=== PATIENT | female | born 1930 | race Caucasian/White ===

== ENCOUNTER 2016-11-15 08:16 | Inpatient (IN) ==
--- NOTE | 2016-11-15 09:01 | PROVIDER DOCUMENTATION ---
HPI-Neurological Disorder - General Chief Complaint: Altered Mental Status Stated Complaint: AMS Time Seen by Provider: 11/15/16 08:45 Source: patient, other (neighbor) Allergies/Adverse Reactions: Patient Allergies Allergy/AdvReac Type Severity Reaction Status Date / Time Sulfa (Sulfonamide Allergy Intermediate RASH AND Verified 04/30/15 13:13 Antibiotics) ITCHING latex Allergy Mild Unknown Verified 04/30/15 13:13 cigarette smoke AdvReac Intermediate NAUSEA, DREW Uncoded 04/30/15 13:13 Home Medications: Home Medication List Medication Instructions Recorded Confirmed Last Taken Type Levothyroxine [Synthroid] 88 microgm PO DAILY 04/22/13 11/15/16 04/30/15 06:00 History 88 MICROGM Pantoprazole [Protonix] 40 mg PO DAILY@0700 04/22/13 11/15/16 04/30/15 06:00 History 40 MG Aspirin 81 mg PO DAILY 02/05/14 11/15/16 04/30/15 06:00 History 81 MG Amlodipine [Norvasc] 10 mg PO QAM 04/04/14 11/15/16 04/30/15 06:00 History 10 MG Clopidogrel [Plavix] 75 mg PO DAILY #0 tablet 04/06/14 11/15/16 04/30/15 06:00 Rx 75 MG Levetiracetam [Keppra] 500 mg PO BID 09/13/14 11/15/16 04/30/15 06:00 History 500 MG Losartan [Cozaar] 50 mg PO DAILY 09/13/14 11/15/16 04/29/15 18:00 History 50 MG Meloxicam [Mobic] 7.5 mg PO DAILY 09/13/14 11/15/16 04/30/15 06:00 History 7.5 MG Acetaminophen 500 mg PO Q4-6H PRN PRN 11/15/16 11/15/16 Unknown History Tamsulosin [Flomax] 0.4 mg PO QHS 11/15/16 11/15/16 Unknown History - History of Present Illness-Neuro Nature of Presenting Problem: delirious Headache Location: reports: global Severity: reports: moderate Onset/Duration: reports: this morning Timing: reports: still present Context: reports: other (delirium) Any recent trauma/injury?: reports: none New weakness or altered sensation location:: reports: none Cognitive Baseline: alert but confused Associated Symptoms: reports: confusion Similar Symptoms Previously?: No Recently seen or treated by another doctor?: No Review of Systems - Adult - REVIEW OF SYSTEMS - ADULT Constitutional: reports: no symptoms reported Eyes: reports: no symptoms reported Ears, Nose, Mouth & Throat: reports: no symptoms reported Cardiovascular: reports: no symptoms reported Respiratory: reports: no symptoms reported Gastrointestinal: reports: no symptoms reported Genitourinary: reports: no symptoms reported Musculoskeletal: reports: no symptoms reported Integumentary: reports: no symptoms reported Neurological: reports: no symptoms reported Endocrine: reports: no symptoms reported Hematologic/Lymphatic: reports: no symptoms reported Allergic/Immunologic: reports: no symptoms reported Past History - Adult - PAST MEDICAL HISTORY-ADULT Review of Records: reports: Nursing Assessment Review, Medications Reviewed, Social history reviewed & non-contributory. Major Childhood Illnesses: reports: denies history Cardiovascular: reports: HTN Respiratory: reports: denies history Gastrointestinal: reports: GERD Obstetrical/Gynecological: reports: denies history Genitourinary: reports: denies history Musculoskeletal: reports: denies history Neurological: reports: CVA, TIA Endocrine/Immune: reports: thyroid disorder (hypothyroidism) Other Conditions: reports: denies history - PRIOR SURGERIES/PROCEDURES Surgical/Procedure History: reports: appendectomy, cholecystectomy, hysterectomy , tonsillectomy, orthopedic (extremity) (right shoulder) - PRIOR HOSPITALIZATIONS Prior Hospitalizations: reports: for similar symptoms - IMMUNIZATION STATUS Childhood Immunizations: See Nurse Assessment Flu Vaccine: See Nurse Assessment - FAMILY HISTORY Family History: reviewed, not pertinent Physical Exam- Neurological - Physical Exam-Neuro Initial Vital Signs Reviewed: Yes General Appearance: other (confused) Eye Exam: bilateral eye: normal inspection, PERRL, EOMI HENMT: normocephalic/atraumatic, moist mucous membranes, normal ENT inspection Head Injury: no evidence of injury Neck: supple Respiratory: lungs clear Cardiovascular: regular rate, rhythm Abdominal Exam: soft Lymphatic: no adenopathy 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 negative: abnormal eye position Motor/Sensory: no motor deficit Neurologic: grossly normal Integumentary: normal color, normal turgor Psych/Mental Status: oriented x 3 Progress - PLAN OF CARE/RESULTS Progress/Plan/Lab Results: Vital Signs - 8 hr 11/15/16 08:20 Temperature 98.4 F Pulse Rate 104 H Respiratory Rate 18 Blood Pressure 165/127 O2 Sat by Pulse Oximetry 94 L Laboratory Results - last 24 hr 11/15/16 11/15/16 11/15/16 08:21 09:06 09:06 WBC RBC Hgb Hct MCV MCH MCHC RDW Std Deviation Plt Count MPV Immature Gran % (Auto) Neut % (Auto) Lymph % (Auto) Dyer % (Auto) Eos % (Auto) Baso % (Auto) Immature Gran # (Auto) Neut # (Auto) Lymph # (Auto) Dyer # (Auto) Eos # (Auto) Baso # (Auto) PT INR APTT (Factor Assay) Sodium 131 L Potassium 4.6 Chloride 94 L Carbon Dioxide 21 L Anion Gap 16 BUN 24 H Creatinine 1.0 H Estimated GFR/1.73 m2 53 BUN/Creatinine Ratio 24 Glucose 117 H POC Glucose 120 H Calculated Osmolality 268 Calcium 9.7 Total Bilirubin 0.30 AST 20 ALT 14 Alkaline Phosphatase 68 Creatine Kinase 41 Troponin T Total Protein 6.7 Albumin 4.6 Globulin 2.0 Albumin/Globulin Ratio 2.0 Plasma Lactate 0.6 Urine Source Urine Color Urine Clarity Urine pH Ur Specific [place] Urine Protein Urine Ketones Urine Blood Urine Nitrite Urine Bilirubin Urine Urobilinogen Urine Microscopic RBC Urine WBC Urine Microscopic WBC Ur Epithelial Cells Urine Glucose Plasma/Serum Ethyl Alc 11/15/16 11/15/16 11/15/16 09:06 09:06 09:06 WBC 9.13 RBC 4.34 Hgb 13.6 Hct 39.9 MCV 91.9 MCH 31.3 H MCHC 34.1 RDW Std Deviation 12.4 Plt Count 222 MPV 10.0 Immature Gran % (Auto) 0.2 Neut % (Auto) 85.2 H Lymph % (Auto) 7.1 L Dyer % (Auto) 6.0 Eos % (Auto) 1.0 Baso % (Auto) 0.5 Immature Gran # (Auto) 0.02 Neut # (Auto) 7.77 H Lymph # (Auto) 0.65 L Dyer # (Auto) 0.55 Eos # (Auto) 0.09 Baso # (Auto) 0.05 PT INR APTT (Factor Assay) Sodium Potassium Chloride Carbon Dioxide Anion Gap BUN Creatinine Estimated GFR/1.73 m2 BUN/Creatinine Ratio Glucose POC Glucose Calculated Osmolality Calcium Total Bilirubin AST ALT Alkaline Phosphatase Creatine Kinase Troponin T < 0.010 Total Protein Albumin Globulin Albumin/Globulin Ratio Plasma Lactate Urine Source Urine Color Urine Clarity Urine pH Ur Specific [place] Urine Protein Urine Ketones Urine Blood Urine Nitrite Urine Bilirubin Urine Urobilinogen Urine Microscopic RBC Urine WBC Urine Microscopic WBC Ur Epithelial Cells Urine Glucose Plasma/Serum Ethyl Alc 11/15/16 11/15/16 09:06 09:45 WBC RBC Hgb Hct MCV MCH MCHC RDW Std Deviation Plt Count MPV Immature Gran % (Auto) Neut % (Auto) Lymph % (Auto) Dyer % (Auto) Eos % (Auto) Baso % (Auto) Immature Gran # (Auto) Neut # (Auto) Lymph # (Auto) Dyer # (Auto) Eos # (Auto) Baso # (Auto) PT 13.0 INR 0.95 APTT (Factor Assay) 27.2 Sodium Potassium Chloride Carbon Dioxide Anion Gap BUN Creatinine Estimated GFR/1.73 m2 BUN/Creatinine Ratio Glucose POC Glucose Calculated Osmolality Calcium Total Bilirubin AST ALT Alkaline Phosphatase Creatine Kinase Troponin T Total Protein Albumin Globulin Albumin/Globulin Ratio Plasma Lactate Urine Source CATH Urine Color YELLOW Urine Clarity CLEAR Urine pH 7.0 Ur Specific [place] 1.000 Urine Protein 1+(30 mg/dL) A Urine Ketones NEGATIVE Urine Blood NEGATIVE Urine Nitrite NEGATIVE Urine Bilirubin NEGATIVE Urine Urobilinogen NORMAL Urine Microscopic RBC Not Reportable Urine WBC 1+ A Urine Microscopic WBC <10 Ur Epithelial Cells <10 Urine Glucose NEGATIVE Plasma/Serum Ethyl Alc Orders Category Date Time Status Cardiac Monitoring DIRECTED Care 11/15/16 08:20 Active Finger Stick Blood Sugar (ED) DIRECTED Care 11/15/16 08:20 Active Oxygen Therapy- ED Nursing DIRECTED Care 11/15/16 08:20 Active Saline Loc NOW Care 11/15/16 08:20 Active CHEST-2 VIEWS [RAD] Stat Exams 11/15/16 08:21 Draft HEAD W/O CONTRAST [CT] Stat Exams 11/15/16 08:21 Draft ALCOHOL BLOOD Stat Lab 11/15/16 09:06 Completed CBC WITH ELECTRONIC DIFF [HEME] Stat Lab 11/15/16 09:06 Completed CK PROFILE [SP CHEM] Stat Lab 11/15/16 09:06 Completed COMPREHENSIVE METABOLIC PANEL [CHEM] Stat Lab 11/15/16 09:06 Completed LACTATE, PLASMA [CHEM] Stat Lab 11/15/16 09:06 Completed PR[address]IME WITH INR PL [COAG] Stat Lab 11/15/16 09:[address] [COAG] Stat Lab 11/15/16 09:06 Completed TROPONIN T Stat Lab 11/15/16 09:[address] W/POSS RFLX CULT [URINALYSIS] Stat Lab 11/15/16 09:45 Completed Lorazepam [Ativan] Med 11/15/16 09:55 Discontinued 1 mg IV NOW ONE Pulse Oximetry Stat Oth 11/15/16 08:20 Active EKG [EKG] Stat Ther 11/15/16 08:20 Draft Result Diagrams: 11/15/16 09:06 11/15/16 09:06 - EKG 1 Time of EKG reading by physician:: 08:27 EKG Read and Signed by:: Rafy Caputo EKG Interpretation (*Must complete 3 of following elements*): Abnormal Rate: 102 Rhythm: SINUS TACHYCARDIA WITH PVCS [place]: normal QRS: PVC's [place] Interval: normal ST Wave: normal - CT/MRI 1 CT Study: Head Impression: Abnormal CT Results: MICRO VZS CHANGES, FRONTAL ETHOMID MAX SINUSITIS Departure - Departure Time of Disposition Decision: 10:52 DIAGNOSIS: Delirium Disposition: ADMITTED INPATIENT 09 Certified Medical Emergency: Emergent Condition: Stable Referrals and Follow-Ups: Wilfred Hernandez [Primary Care Provider] -
[2016-11-15 09:12] LABS: BASO% 0.5 % (0.0-0.8); EOS# 0.09 X1000 (0.0-0.7); HEMATOCRIT 39.9 % (37.0-47.0); HEMOGLOBIN 13.6 g/dL (12.0-16.0); IMM GRAN# 0.02 X1000 (0.0-0.04); IMM GRAN% 0.2 % (0.0-0.5); LYMPH# 0.65 X1000 (1.2-3.4); LYMPH% 7.1 % (20.5-51.1); MANUAL DIFF NEEDED? NO; MCH 31.3 PG (27-31); MCHC 34.1 g/dL (33-37); MCV 91.9 FL (81-99); MONO# 0.55 X1000 (0.11-0.59); NEUT% 85.2 % (42.2-75.2); PLT 222 X1000 (130-400); RBC 4.34 XMIL (4.2-5.4)
[2016-11-15 09:33] LABS: INR 0.95 (0.86-1.15); PTT PL 27.2 Seconds (22.6-43.9)
--- NOTE | 2016-11-15 09:34 | EKG Report ---
Test Performed on : 11/15/2016 08:27:06 AM Test Reason : AMS Blood Pressure : / mmHG Vent. Rate : 102 BPM Atrial Rate : 102 BPM P-R Int : 162 ms QRS Dur : 084 ms QT Int : 368 ms P-R-T Axes : 082 028 037 degrees QTc Int : 479 ms Sinus tachycardia. with frequent premature ventricular complexes. Otherwise normal ECG When compared with ECG of 30-APR-2015 15:33, premature ventricular complexes. are now present Unconfirmed Result
[2016-11-15 09:42] LABS: ALBUMIN 4.6 g/dL (3.5-5.0); CALCIUM 9.7 mg/dL (8.8-10.2); POTASSIUM 4.6 mmol/L (3.5-5.1); TOTAL BILIRUBIN 0.3 mg/dL (0.20-1.00); TOTAL PROTEIN 6.7 g/dL (6.3-8.3)
[2016-11-15] MEDS ORDERED: ATIVAN IV ONE (09:55)
[2016-11-15 10:06] LABS: URINE CULTURE PL NEEDED? NO
--- NOTE | 2016-11-15 10:12 | Diag Imaging Result Document ---
PROCEDURE NAME: HEAD W/O CONTRAST - 11/15/[address] SCAN OF THE BRAIN: INDICATION: Altered mental status. COMPARISON: 09/13/2014. FINDINGS: There are no extra-axial collections. There is no evidence for acute infarct or hemorrhage. There is cerebrovascular calcification and hypodensity within the deep white matter likely related to microvascular disease. There is no evidence for acute infarct or hemorrhage. No hydrocephalus, midline shift, or mass effect. There is diffuse cerebral atrophy. There is complete opacification of the left frontal, anterior ethmoid, and left maxillary sinus. The density within the left maxillary sinus is somewhat increased which may indicate fungal sinusitis. IMPRESSION: 1. Atrophy and microvascular disease. 2. No acute intracranial abnormality. 3. Unchanged complete opacification of the left frontal, anterior ethmoid, and maxillary sinuses. Cannot exclude fungal sinusitis.
[2016-11-15 10:14] LABS: BILIRUBIN URINE NEGATIVE (NEGATIVE); BLOOD URINE NEGATIVE (NEGATIVE); CLARITY CLEAR (CLEAR); COLOR YELLOW; GLUCOSE URINE NEGATIVE (NEGATIVE); LEUKOCYTES URINE 1+ (NEGATIVE); NITRITE URINE NEGATIVE (NEGATIVE); PROTEIN URINE 1+(30 mg/dL) mg/dL (NEGATIVE); UROBILINOGEN URINE NORMAL
--- NOTE | 2016-11-15 10:22 | Diag Imaging Result Document ---
PROCEDURE NAME: CHEST-2 VIEWS - 11/15/2016 CHEST, TWO VIEWS: INDICATION: Altered mental status. COMPARISON: 09/13/2014. FINDINGS: The cardiomediastinal silhouette is within normal limits. The pulmonary vasculature is not congested. There is evidence of a previous granulomatous infection. There are old right rib fractures. No acute abnormalities are appreciated. There is rotator cuff arthropathy of the right shoulder. IMPRESSION: No acute abnormalities are identified.
[2016-11-15 10:40] LABS: URINE EPITHELIAL CELLS <10 /HPF (<10); URINE SOURCE CATH; URINE WBC <10 /HPF (<10)
--- NOTE | 2016-11-15 15:37 | HISTORY AND PHYSICAL ---
PRIMARY CARE PHYSICIAN: Dr. Wilfred Hernandez. CHIEF COMPLAINT: Altered mental status. HISTORY OF PRESENT ILLNESS: This is an 86-year-old female who presented to the emergency room via EMS after being called by the patient's friend. The patient is altered. I am unable to obtain any information from her. There is no one present, so information is taken from the chart. According to the ER records, the friend stated that she talked to the patient last night as she was "normal." This morning, she called and the patient was not making any sense at all. She was moaning and stating that her head was hurting real bad. CT scan of the head revealed atrophy with microvascular disease, no acute intracranial abnormality, unchanged opacification of the left frontal, anterior ethmoid, and maxillary sinuses. Cannot exclude fungal sinusitis. She was noted to have a sodium of 131. She is being admitted for further evaluation and treatment. PAST MEDICAL HISTORY: Hypertension, gastroesophageal reflux disease, hypothyroid, seizure disorder, arthritis, coronary artery disease. PAST SURGICAL HISTORY: Unknown. SOCIAL HISTORY: She lives alone. We are unsure of tobacco, alcohol, or illicit drug use. ALLERGIES: Sulfa, which caused rash and itching. Latex, with unknown reaction. HOME MEDICATIONS: A list will be obtained, once verified. REVIEW OF SYSTEMS: Unable to obtain. PHYSICAL EXAMINATION: GENERAL: This is an 86-year-old female, who is lying in the bed, lethargic. VITAL SIGNS: Blood pressure is 160/93, with a heart rate of 99, respirations 18, temperature 98.4 degrees oral, with room air saturations of 94% to 99%. HEENT: Head is normocephalic, atraumatic. Pupils are equal, round, and react to light. EOMs are intact. Sclerae are anicteric. Mucous membranes are dry. NECK: Supple, with trachea midline. CARDIOVASCULAR: Regular rate and rhythm, S1 and S2 appreciated. PULMONARY: Breath sounds are clear, with no increased work of breathing noted. GASTROINTESTINAL: Abdomen is soft and nondistended, with bowel sounds in all 4 quadrants. GENITOURINARY: Narvaez is patent to bedside bag with clear urine draining. EXTREMITIES: No clubbing, cyanosis, or edema. Pulses are palpable x4. SKIN: Warm and dry. NEUROLOGIC: She is lethargic. She does withdraw from pain. She will open her eyes if her name is called our to tactile stimulation. When asked what her name was, she stated "water." LABS: WBC is 9.13, with hemoglobin 13.6, hematocrit 39.9, and platelets of 222,000. Sodium is 131, potassium 4.6, BUN 24, creatinine 1, with glucose of 117-120. Troponins negative on multiple occasions. TSH is 1.63. Blood alcohol is nondetectable. Keppra level is pending. ASSESSMENT AND PLAN: 1. Altered mental status, cause unknown. She has had a stroke in the past. Her friend last spoke with her last night and stated that she sounded normal. The CT of the head revealed no acute stroke or bleed. We will do neurologic checks q.4 hours. We will monitor for change in status. 2. Left frontal, maxillary, and ethmoid sinusitis with fungal not excluded. We did speak with Dr. Jason Ta of Infectious Disease and he stated that he recommended vancomycin and Zosyn for antibiotic coverage, stating that unless we have a definitive fungal diagnosis we will be unsure of which medication to use. At present, we will treat as bacterial, per his recommendation. 3. Hypertension. Right now, blood pressures are ranging in the 160s over 90s range. We will continue to follow. 4. Hypothyroid. TSH is within normal limits. We will continue to watch. 5. History of seizures. We are unsure of the patient's medications. In her past records, she has been on Keppra. We will obtain a Keppra level and monitor for seizure activity. 6. Hyponatremia. We will gently hydrate and trend laboratories. Further treatment pending hospital course. Dictated by BENNY Gutierrez for Leo Alvarez MD cc: BENNY Gutierrez MD
[2016-11-15] MEDS ORDERED: NS IV SCH (21:00)
[2016-11-15] MEDS ORDERED: KEPPRA IV SCH (21:00)
[2016-11-16 06:07] LABS: MANUAL DIFF NEEDED? NO
[2016-11-16 06:40] LABS: ALBUMIN 3.8 g/dL (3.5-5.0); CALCIUM 9.3 mg/dL (8.8-10.2); POTASSIUM 4.1 mmol/L (3.5-5.1); TOTAL BILIRUBIN 0.3 mg/dL (0.20-1.00); TOTAL PROTEIN 5.8 g/dL (6.3-8.3)
[2016-11-16 07:19] LABS: BASO% 0.3 % (0.0-0.8); EOS# 0.12 X1000 (0.0-0.7); EOS% 1.8 % (0.0-10.0); HEMATOCRIT 36.1 % (37.0-47.0); HEMOGLOBIN 12.3 g/dL (12.0-16.0); IMM GRAN# 0.01 X1000 (0.0-0.04); IMM GRAN% 0.2 % (0.0-0.5); LYMPH# 0.87 X1000 (1.2-3.4); LYMPH% 13.1 % (20.5-51.1); MCH 31.1 PG (27-31); MCHC 34.1 g/dL (33-37); MCV 91.4 FL (81-99); MONO# 0.71 X1000 (0.11-0.59); MONO% 10.7 % (1.7-9.3); MPV 10.4 FL (7.4-10.4); NEUT% 73.9 % (42.2-75.2); PLT 248 X1000 (130-400); RBC 3.95 XMIL (4.2-5.4)
[2016-11-16] MEDS ORDERED: TYLENOL PO PRN (08:28)
[2016-11-16] MEDS ORDERED: NORVASC PO SCH (09:00)
[2016-11-16] MEDS ORDERED: COZAAR PO SCH (09:00)
[2016-11-16] MEDS ORDERED: KEPPRA PO SCH (09:00)
[2016-11-16] MEDS ORDERED: ASPIRIN PO SCH (09:00)
[2016-11-16] MEDS ORDERED: PLAVIX PO SCH (09:00)
[2016-11-16] MEDS ORDERED: MOBIC PO SCH (09:00)
[2016-11-16] MEDS ORDERED: NS 1,000 ML IV SCH (10:54)
[2016-11-16] MEDS ORDERED: DOXYCYCLINE PO SCH (11:00)
--- NOTE | 2016-11-16 11:42 | PROGRESS NOTE ---
DATE: 11/16/2016 SUBJECTIVE: The patient denies any complaints this morning. States that she is hungry. OBJECTIVE: Vital Signs: Reviewed. Temperature 98 degrees, pulse 90, respiratory 20, BP 111/68, satting 98% on room air. General: Patient well developed, well nourished. Currently in no respiratory distress. She is awake, alert. Neck: Supple. CV: Regular rate. Chest: Relatively clear. Abdomen: Soft. Neurologic: Patient is awake. She is still occasionally disoriented; she thought she was in [facility] versus [place]. She initially said it was 2018, but without any prompting she settled on 2016. Notes that she remembers feeling strange yesterday and called her neighbor. However, she does not remember much after that event. ASSESSMENT: 1. Acute on chronic renal failure. Serum creatinine is 1.2. Baseline 0.9-1.0. 2. Hyponatremia. 3. Acute delirium. This certainly appears to be resolved. 4. Left frontal maxillary and ethmoidal sinusitis. Patient does remark that she has had a headache, so we certainly will treat her for a sinus infection. 5. Hypothyroidism. 6. Known history of seizures, currently on Keppra. PLAN: We will place patient on doxycycline for her sinus. We will give her 250 mL bolus of normal saline. We will advance her diet. Hopefully she can discharge later this afternoon or certainly by tomorrow if she remains alert and oriented. cc: Leo Alvarez MD
[2016-11-16 16:16] VITALS: BP 144/62
[2016-11-16] MEDS ORDERED: FLOMAX PO SCH (21:00)
[2016-11-17] MEDS ORDERED: SYNTHROID PO SCH (07:00)
[2016-11-17] MEDS ORDERED: PROTONIX PO SCH (07:00)
--- NOTE | 2016-11-24 20:43 | DISCHARGE SUMMARY ---
ADMISSION DATE: 11/15/2016 DISCHARGE DATE: 11/16/2016 DISCHARGE DIAGNOSES: 1. Acute on chronic renal failure, resolved. 2. Volume depletion, resolved. 3. Hyponatremia, resolved. 4. Acute delirium, resolved. 5. Left frontal maxillary and ethmoidal sinusitis, stable. 6. Hypothyroidism, stable. 7. Known history of seizures. Continue Keppra. CONSULTATIONS: None. PROCEDURES: None. BRIEF HOSPITAL COURSE: The patient was admitted as noted in the HPI. Treated in the usual fashion. Given IV fluids which resolved her hyponatremia and her acute renal failure. On discharge, she is awake, alert. She is in no distress. She states she is feeling better and is asking to go home. DISPOSITION: The patient will be discharged home. No changes made on her chronic active medications. She will continue to follow with primary care of her choice. TIME SPENT: 35 minutes was spent in discharge planning and instructions. cc: Leo Alvarez MD
== END 2016-11-16 16:49 | disposition home or self-care (01) ==
LOC: P.ED 08:16 → P.MEDSURG 11:28
PROVIDERS: ATTEND Family Medicine

== ENCOUNTER 2017-01-03 09:50 | Observation (INO) ==
[2017-01-03] MEDS ORDERED: NS 1,000 ML IV PRN (09:53)
--- NOTE | 2017-01-03 10:11 | EKG Report ---
Test Performed on : 01/03/2017 10:07:31 AM Test Reason : confusion Blood Pressure : / mmHG Vent. Rate : 106 BPM Atrial Rate : 106 BPM P-R Int : 172 ms QRS Dur : 084 ms QT Int : 338 ms P-R-T Axes : -29 018 025 degrees QTc Int : 448 ms Sinus tachycardia. with frequent premature ventricular complexes. Otherwise normal ECG When compared with ECG of 15-NOV-2016 08:27, Non-specific change in ST segment in Inferior leads Unconfirmed Result
[2017-01-03 10:18] LABS: MANUAL DIFF NEEDED? NO
[2017-01-03 10:20] LABS: BASO% 0.1 % (0.0-0.8); EOS# 0.07 X1000 (0.0-0.7); HEMATOCRIT 36.4 % (37.0-47.0); HEMOGLOBIN 12.5 g/dL (12.0-16.0); IMM GRAN# 0.02 X1000 (0.0-0.04); IMM GRAN% 0.3 % (0.0-0.5); LYMPH# 0.52 X1000 (1.2-3.4); LYMPH% 7.8 % (20.5-51.1); MCHC 34.3 g/dL (33-37); MCV 90.3 FL (81-99); MONO% 7.5 % (1.7-9.3); MPV 9.5 FL (7.4-10.4); NEUT% 83.3 % (42.2-75.2); PLT 242 X1000 (130-400); RBC 4.03 XMIL (4.2-5.4)
[2017-01-03 10:52] LABS: INR 0.95 (0.86-1.15)
[2017-01-03 10:53] LABS: PTT PL 26.6 Seconds (22.6-43.9)
[2017-01-03 11:08] LABS: ALBUMIN 4.5 g/dL (3.5-5.0); CALCIUM 9.2 mg/dL (8.8-10.2); POTASSIUM 4.2 mmol/L (3.5-5.1); TOTAL BILIRUBIN 0.3 mg/dL (0.20-1.00); TOTAL PROTEIN 6.7 g/dL (6.3-8.3)
--- NOTE | 2017-01-03 11:09 | Diag Imaging Result Doc PS360 ---
EXAM: CHEST-1 VIEW HISTORY: confusion TECHNIQUE: PA and Lateral chest x-ray COMPARISON: 11/15/2016 FINDINGS: There is cardiomegaly. The pulmonary vasculature is not congested. Right rib fractures and right rotator cuff arthropathy are again identified. 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 No acute abnormalities are demonstrated. IMPRESSION: Cardiomegaly. Left basilar fibrosis. Electronically signed by Maribell Rosenberg 01/03/2017 11:06 AM
--- NOTE | 2017-01-03 11:32 | Diag Imaging Result Doc PS360 ---
EXAM: HEAD W/O CONTRAST HISTORY: alan/confusion TECHNIQUE: Axial images were obtained without IV contrast. Dose reduction technique was utilized. COMPARISON: 11/15/2016 FINDINGS: There are no extra-axial collections. There is diffuse cortical and central atrophy. There are cerebrovascular calcifications. There is diffuse hypodensity within the deep white matter which is nonspecific in appearance but likely related to microvascular disease. There is no evidence for acute infarct or hemorrhage. Extensive somewhat high density paranasal sinus opacification is noted. As mentioned on the previous report fungal sinusitis is not excluded. There is no midline shift or mass effect. IMPRESSION: Atrophy and microvascular disease. No change from prior study. Extensive sinusitis. Fungal sinusitis is not excluded. Electronically signed by Maribell Rosenberg 01/03/2017 11:29 AM
[2017-01-03 11:51] LABS: UR AMPHETAMINES QUAL NONE DETECTED (NONE DETECT); UR BARBITUATES QUAL NONE DETECTED (NONE DETECT); UR BENZODIAZEPIN QUAL NONE DETECTED (NONE DETECT); UR CANNABINOIDS QUAL NONE DETECTED (NONE DETECT); UR COCAINE QUAL NONE DETECTED (NONE DETECT); UR MDMA QUAL NONE DETECTED (NONE DETECT); UR METHADONE QUAL NONE DETECTED (NONE DETECT); UR METHAMPHETAMINE QUAL NONE DETECTED (NONE DETECT); UR OPIATES QUAL NONE DETECTED (NONE DETECT); UR OXYCODONE QUAL NONE DETECTED (NONE DETECT); UR PCP QUAL NONE DETECTED (NONE DETECT); UR TCA QUAL NONE DETECTED (NONE DETECT)
[2017-01-03 12:03] LABS: BILIRUBIN URINE NEGATIVE (NEGATIVE); BLOOD URINE NEGATIVE (NEGATIVE); CLARITY CLEAR (CLEAR); COLOR YELLOW; GLUCOSE URINE NEGATIVE (NEGATIVE); LEUKOCYTES URINE TRACE (NEGATIVE); NITRITE URINE NEGATIVE (NEGATIVE); PROTEIN URINE NEGATIVE (NEGATIVE); SP GRAVITY URINE 1.005; URINE CULTURE PL NEEDED? YES; URINE EPITHELIAL CELLS <10 /HPF (<10); URINE SOURCE CLEAN CATCH; URINE WBC <10 /HPF (<10); UROBILINOGEN URINE NORMAL
[2017-01-03] MEDS ORDERED: ASPIRIN PO ONE (12:49)
[2017-01-03] MEDS ORDERED: ASPIRIN ONE (12:57)
[2017-01-03 13:00] LABS: ACETAMINOPHEN < 1.2 ug/mL (10-30)
[2017-01-03] MEDS ORDERED: NS 1,000 ML IV ONE (13:31)
[2017-01-03] MEDS ORDERED: ZOFRAN IV PRN ×2 (16:08→16:48)
[2017-01-03] MEDS: NS 1,000 ML IV ONE ×2 (16:27→18:32)
[2017-01-03] MEDS: TYLENOL PO PRN ×2 (17:09→20:53)
--- NOTE | 2017-01-03 17:53 | HISTORY AND PHYSICAL ---
CHIEF COMPLAINT: Really I guess just confusion. HISTORY OF PRESENT ILLNESS: This is a little lady I think she lives alone at home. Has a very difficult social situation apparently, I do not think she has got close family members, her power- of-television presenter apparently is her neighbor. I think R has been involved in her case from what I understand. She was admitted not too long ago for similar in kind, kind of a altered mental status admission which was maybe a month or 2 ago in November, at that point was unclear what had happened although she had a sinus infection so I think that was attributed. She does have a history of seizures. This admission she does have a low sodium which has been lower than previous 128 and was 131 previously. Other workup was really unremarkable. Urine was clear. I do not think she had anything unusual on her head CT so she was made inpatient for her symptomatic hyponatremia. PAST MEDICAL HISTORY: 1. Again seizure disorder. 2. Hypertension. 3. History of stroke. 4. Hypothyroidism. 5. 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 6. GERD. PAST SURGICAL HISTORY: Denies. SOCIAL HISTORY: She does drink she told me. She told me actually multiple times she drinks 2 fingers of bourbon a day which she mixes with water but she does drink every day. No tobacco. ALLERGIES: Sulfa and latex. HOME MEDICATIONS: I do not think has been confirmed but accordingly is Tylenol , Norvasc 10 daily, aspirin 81 daily, Plavix 75 daily, Keppra 500 b.i.d., Synthroid 88 daily , Cozaar 50 daily, Mobic 7.5 daily, Protonix 40 daily, and Flomax 0.4 daily. REVIEW OF SYSTEMS: Otherwise negative times a 10 point review of systems. PHYSICAL EXAMINATION: VITAL SIGNS: Blood pressure 142/103, heart rate of 110, respiratory 18, 96% on 2 L. I do not think she was orthostatic. GENERAL: A well-developed female, appears just disheveled and just confused really no other way to describe it. Obviously altered. HEENT: Pupils equal, round, reactive to light. Extraocular movements were intact. Ear nose and throat exam she had moist mucous membranes. NECK: Supple. CARDIOVASCULAR EXAM: Regular rate and rhythm. No murmurs, gallops, or rubs. PULMONARY: Bilateral breath sounds. Clear to auscultation. GI: Soft, nontender, nondistended. Bowel sounds are positive. NEURO: Was nonfocal. MUSCULOSKELETAL: Was at least a 4-5 in all 4 extremities. LABORATORY DATA: Her sodium again is 128. Rest of labs were unremarkable including head CT, CBC looked okay. PROBLEM LIST: 1. Altered mentation, encephalopathy likely related to hyponatremia versus other process. We will continue to monitor. 2. Hyponatremia. We will pursue workup. Urine sodium, urine osmolarity, could be related to thyroid function, could be related to chronic alcohol use, could be related to nutritional status. We will continue to follow closely. Add gentle hydration and monitor. 3. Hypertension. Will continue regular medications. 4. Seizure disorder. We will continue her regular medications and follow. cc: Wilfred SMITH
[2017-01-03 20:39] LABS: AGAP 15; BUN 19 mg/dL (8-22); CALCIUM 8.2 mg/dL (8.8-10.2); CHLORIDE 94 mmol/L (98-107); COSMO 264; POTASSIUM 3.5 mmol/L (3.5-5.1); SODIUM 130 mmol/L (136-145); TCO2 21 mmol/L (25-35)
[2017-01-03] MEDS: HALDOL IV PRN (22:02)
[2017-01-04] MEDS: PRILOSEC PO SCH (06:42)
[2017-01-04 07:23] LABS: AGAP 16; BUN 16 mg/dL (8-22); CALCIUM 8.5 mg/dL (8.8-10.2); CHLORIDE 98 mmol/L (98-107); COSMO 271; POTASSIUM 3.4 mmol/L (3.5-5.1); SODIUM 135 mmol/L (136-145); TCO2 22 mmol/L (25-35)
[2017-01-04 07:30] LABS: HEMATOCRIT 37.6 % (37.0-47.0); HEMOGLOBIN 12.7 g/dL (12.0-16.0); MCH 30.8 PG (27-31); MCHC 33.8 g/dL (33-37); MCV 91.3 FL (81-99); RBC 4.12 XMIL (4.2-5.4)
[2017-01-04] MEDS ORDERED: TYLENOL PO PRN (11:29)
[2017-01-04] MEDS: ASPIRIN PO SCH (11:40)
[2017-01-04] MEDS: PLAVIX PO SCH (11:44)
[2017-01-04] MEDS: KEPPRA PO SCH ×2 (11:44→20:12)
[2017-01-04] MEDS ORDERED: KLOR-CON PO ONE (13:47)
[2017-01-04] MEDS ORDERED: NS 1,000 ML IV SCH (13:58)
--- NOTE | 2017-01-04 14:26 | PROGRESS NOTE ---
DATE: 01/04/2017 SUBJECTIVE: Patient has no focal complaints. She really wants to go home. OBJECTIVE: Vital signs: Blood pressure 176/87, heart rate of 105, respiratory rate 18, temperature 98 degrees, 99% on 2 L. Cardiovascular: Regular rate and rhythm. Pulmonary: Bilateral breath sounds. Clear to auscultation. GI: Soft, nontender, nondistended. Bowel sounds are positive. LABORATORY DATA: White count 6, hemoglobin and hematocrit 12 and 37, platelets 254,000. Potassium 3.4. TSH 2.93. PROBLEM LIST: 1. Hyponatremia. That is actually a little bit better with sodium correction up from 130 to 135, appears to be stable. I am going to continue fluids for at least another 24 hours. Will see how she is doing with that. 2. Encephalopathy likely multifactorial but probably related to her hyponatremia. That also seems to be clinically improved. 3. Seizure disorder. Appears to be controlled on her current medications. 4. Hypertension is also stable. DISPOSITION: We will work with physical therapy and see how she does getting up and around. There is some issues with going home apparently reportedly, not sure if there is unsafe environment issues and R has been involved. Will work with them and social work about possible placement. Will continue to follow. cc: Dinesh Alanis MD
[2017-01-04] MEDS: TYLENOL PO PRN (20:12)
[2017-01-04] MEDS: LIORESAL PO SCH (20:12)
[2017-01-04] MEDS ORDERED: FLOMAX PO SCH (21:00)
[2017-01-05] MEDS: HALDOL IV PRN (00:53)
[2017-01-05] MEDS: PRILOSEC PO SCH (06:13)
[2017-01-05] MEDS ORDERED: SYNTHROID PO SCH (07:00)
[2017-01-05] MEDS ORDERED: PROTONIX PO SCH (07:00)
[2017-01-05 07:01] LABS: HEMATOCRIT 35.6 % (37.0-47.0); HEMOGLOBIN 11.9 g/dL (12.0-16.0); MCH 31.7 PG (27-31); MCHC 33.4 g/dL (33-37); MCV 94.9 FL (81-99); RBC 3.75 XMIL (4.2-5.4)
[2017-01-05 08:05] LABS: CALCIUM 9.4 mg/dL (8.8-10.2); POTASSIUM 4.2 mmol/L (3.5-5.1)
[2017-01-05 08:19] VITALS: BP 124/71
[2017-01-05] MEDS: PLAVIX PO SCH (08:27)
[2017-01-05] MEDS: LIORESAL PO SCH (08:27)
[2017-01-05] MEDS: ASPIRIN PO SCH (08:27)
[2017-01-05] MEDS: KEPPRA PO SCH (08:27)
[2017-01-05] MEDS ORDERED: NORVASC PO SCH (09:00)
[2017-01-05] MEDS ORDERED: AUGMENTIN PO ONE (14:40)
--- NOTE | 2017-01-05 21:42 | DISCHARGE SUMMARY ---
ADMISSION DATE: 01/03/2017 DISCHARGE DATE: 01/05/2017 DISCHARGE DIAGNOSES: 1. Hyponatremia. 2. Seizure disorder. 3. Hypertension. 4. Altered mental status. HOSPITAL COURSE: Briefly this is a pleasant 87-year-old female presenting with some confusion. She lives alone, she reports having a lot of caregivers. She was seen here about a month ago also for confusion, sinus infection was treated, at that time she did have a little bit of low sodium now low sodium this time of 128. I do not get a sense she eats and drinks very well and I am suspicious she drinks more alcohol than she tells me, she told me she drinks bourbon intermittently but she has only done it once or twice in the last 6 months but then she says she also drinks wine. In any case she was somewhat confused the 1st day, after hydration though the following day she was alert, oriented, had no focal complaints. Sodium was 135 the next day after hydration was up to 136. Clinically she stabilized, she had no evidence of other infection. Chest x-ray was clear. Head CT was unremarkable and again she was alert, oriented. She did have some sinusitis though it looked like on her CT scan although no white count. DISCHARGE CONDITION: Was stable. She did not want to pursue any inpatient rehab. We will set her up for home health and home physical therapy and follow clinically. We will give her some antibiotics to treat the sinus infection again, she may need an ENT referral so we will refer [facility] to [facility] for evaluation and continue to follow. DISCHARGE MEDICATIONS: Acetaminophen p.r.n., Norvasc 10 daily, aspirin 81 daily, baclofen 10 b.i.d., Plavix 75 daily, Keppra 750 b.i.d., Synthroid 88 daily, Protonix 40 daily, Flomax 0.4 daily and then Augmentin 500 q.12 for another 7 days. We will arrange to have home health check her basic in about 1 week. Recommend fluid restriction of at least 2 L a day. cc: Vance Garcia MD PCP in [place]
== END 2017-01-05 14:58 | disposition home health service (06) ==
LOC: P.ED 09:50 → P.MEDSURG 09:50
PROVIDERS: ATTEND Internal Medicine